=== PATIENT | female | born 1960 | race African-American/Black ===

== ENCOUNTER 2016-12-20 17:57 | Emergency (ER) | payer MEDICAID ==
[~2016-12-20] VITALS: Ht 157.5 cm; Wt 61.2 kg
[~2016-12-20 17:57] MED LIST: AMOXICILLI200 MG/5 M PO; CHERATUSSIN AC118 ML PO; CYCLOBENZAPRINE10 MG ORAL; IBUPROFEN600 MG ORAL; LORATADINE10 M2 PO; NORCO 5-325 TA1 EACH ORAL; OMEPRAZOLE20 M2 ORAL; PREDNISONE20 MG ORAL
[2016-12-20] MEDS ORDERED: TESSALON PERLE100 MG ORAL (18:31)
[2016-12-20] MEDS ORDERED: IBUPROFEN600 MG ORAL (18:31)
[2016-12-20] MEDS ORDERED: AMOXICILLIN500 MG ORAL (18:31)
[2016-12-20 18:37] VITALS: BP 144/80
[2016-12-20 18:40] VITALS: BP 144/80
--- NOTE | 2016-12-20 18:53 | Emergency Room Report ---
History of Present Illness General Chief Complaint: Sore Throat Source: Patient Present Illness HPI The patient is a 56-year-old female presenting for 2 weeks of sore throat, cough , and subjective fevers. She admits to a sick contact who is her mother with similar symptoms. Pain is described as an 8/10 dull ache and does not radiate from the throat. Pain worse with swallowing. She had a tonsillectomy as a child due to recurrent infections. She denies other symptoms including N, V, SOB, rash, CLEMENT, dizziness Allergies: Coded Allergies: SULFA (SULFONAMIDE ANTIBIOTICS) (Unverified Allergy, Intermediate, 12/21/14) Patient History Past Medical History: see triage record Pertinent Family History: none Reviewed Nursing Documentation: PMH: Agreed, PSxH: Agreed Nursing Documentation-PMH Past Medical History: No Stated History Hx Gastrointestinal Problems: Yes - GERD Review of Systems All Other Systems: negative except mentioned in HPI Physical Exam Vital Signs Date Time Temp Pulse Resp B/P Pulse Ox O2 Delivery O2 Flow Rate FiO2 12/20/16 18:18 97.9 84 16 144/80 98 Room Air Sp02 EP Interpretation: reviewed, normal General Appearance: no apparent distress, alert, GCS 15, non-toxic Head: normocephalic, atraumatic Eyes: bilateral eye PERRL, bilateral eye normal inspection ENT: hearing grossly normal, no angioedema, normal voice, uvula midline, other - tonsillectomy Neck: full range of motion, supple/symm/no masses Respiratory: chest non-tender, lungs clear, normal breath sounds, no wheezing, speaking full sentences Cardiovascular #1: regular rate, rhythm, no edema Neurologic: alert, oriented x3, responsive, motor strength/tone normal, sensory intact, speech normal Psychiatric: judgement/insight normal, memory normal, mood/affect normal, no suicidal/homicidal ideation Skin: normal color, no rash, warm/dry, well hydrated Lymphatic: adenopathy Medical Decision Making PA Attestation Dr. Lai is my supervising physician. Patient management was discussed with my supervising physician Diagnostic Impression: Primary Impression: Pharyngitis, acute Qualified Codes: J02.9 - Acute pharyngitis, unspecified ER Course The patient is a 56-year-old female presenting for 2 weeks of sore throat, cough , and subjective fevers Differential diagnosis include but not limited to pharyngitis, sinusitis, AOM, bronchitis, PNA Physical exam: Vitals within normal limits. Afebrile. No apparent distress HEENT exam: No tonsils. Oropharynx is erythematous. Uvula midline. Moist mucous membranes. There is bilateral cervical lymphadenopathy. Lungs are clear to auscultation bilaterally Skin is warm and dry. No rash The patient will be discharged home with a prescription for amoxicillin, motrin , and Tessalon and is given ER precautions. Patient will followup with primary care Last Vital Signs Date Time Temp Pulse Resp B/P Pulse Ox O2 Delivery O2 Flow Rate FiO2 12/20/16 18:40 97.9 78 16 144/80 98 Room Air Status: improved Disposition: HOME, SELF-CARE Condition: Improved Scripts Amoxicillin* (AMOXIL*) 500 Mg Capsule 500 MG ORAL Q12HR, #20 CAP Prov: SHARRI SEVILLA P.A. 12/20/16 Benzonatate* (TESSALON PERLE*) 100 Mg Capsule 100 MG ORAL THREE TIMES A DAY, #15 PERLE Prov: SHARRI SEVILLA P.A. 12/20/16 Ibuprofen* (MOTRIN*) 600 Mg Tablet 600 MG ORAL Q8H Y for For Pain, #30 TAB 0 Refills Prov: SHARRI SEVILLA P.A. 12/20/16 Patient Instructions: Pharyngitis, Sore Throat Additional Instructions: I discussed my findings with the patient. All questions and concerns have been answered. Treatment and medication compliance have been addressed. I advised the patient that they need to follow up with PMD in 3-5 days. Return to ED if pain remains or worsens, cough worsens or remains, you notice blood in your sputum, you notice wheezing, you experience a fever, or if needed for any reason. Patient verbalized understanding of discharge instructions. SHARRI SEVILLA Dec 20, 2016 18:53
== END 2016-12-20 18:35 | disposition home or self-care (01) ==
LOC: EMR 18:20
DX: J20.9 Acute bronchitis, unspecified (principal); Z88.2 Allergy status to sulfonamides; K21.9 Gastro-esophageal reflux disease without esophagitis
CPT/HCPCS: 82962; 99284

== ENCOUNTER 2017-05-01 18:08 | Emergency (ER) | payer MEDICAID ==
[~2017-05-01] VITALS: Ht 177.8 cm; Wt 61.2 kg
[~2017-05-01 18:08] MED LIST changes: +AMOXICILLIN500 MG ORAL; +TESSALON PERLE100 MG ORAL
[2017-05-01 19:15] VITALS: BP 123/78
[2017-05-01] MEDS ORDERED: Ketorolac 60mg Inj IM ONE (19:30)
[2017-05-01] MEDS ORDERED: TYLENOL EXTRA500 MG ORAL (19:56)
[2017-05-01] MEDS ORDERED: ROBAXIN-750750 MG PO (19:56)
[2017-05-01] MEDS ORDERED: SOMA350 MG PO (20:15)
[2017-05-01 20:30] VITALS: BP 129/81
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
--- NOTE | 2017-05-02 12:38 | Diagnostic Imaging Report ---
Indication: Neck Pain Findings: 3 views of the cervical spine were obtained. There is narrowing of the C5-6 disc with mild endplate spurring. There is straightening of cervical spine. No fracture or soft tissue swelling identified. Impression: Degenerative disease of C5-6
== END 2017-05-01 20:32 | disposition home or self-care (01) ==
LOC: EMR 18:41
DX: M54.9 Dorsalgia, unspecified (principal); S16.1XXA Strain of muscle, fascia and tendon at neck level, initial encounter; V43.52XA Car driver injured in collision with other type car in traffic accident, initial encounter; Y92.410 Unspecified street and highway as the place of occurrence of the external cause; M54.6 Pain in thoracic spine; Z88.2 Allergy status to sulfonamides
CPT/HCPCS: 72040; 96372; 99284

== ENCOUNTER 2017-12-05 12:32 | Emergency (ER) | payer MEDICAID ==
[~2017-12-05] VITALS: Ht 157.5 cm; Wt 61.2 kg
[~2017-12-05 12:32] MED LIST changes: +ROBAXIN-750750 MG PO; +SOMA350 MG PO; +TYLENOL EXTRA500 MG ORAL
[2017-12-05 12:46] VITALS: BP 132/80
--- NOTE | 2017-12-05 12:53 | Emergency Room Report ---
History of Present Illness General Chief Complaint: Upper Respiratory Illness Present Illness HPI 57-year-old female presents to the emergency department complaining of nonproductive persistent cough 3 days with associated 10 out of 10 in severity sore throat. Patient denies sputum production, wheezing, or shortness of breath. reports throat pain exacerbated with eating/swallowing. pt. reports fevers since yesterday and has been taking tylenol regularly. 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 Denies ear pain, high fevers, lethargy, neck pain/stiffness, irritability , photophobia dehydration, N/V/D. Denies Cp, Palpitations, LOC, AMS, seizures, paresthesias, or changes in Hearing or vision, no Sudden severe CLEMENT. Denies hx of smoking, asthma or COPD. Allergies: Coded Allergies: SULFA (SULFONAMIDE ANTIBIOTICS) (Unverified Allergy, Intermediate, 12/21/14) Patient History Past Medical History: see triage record Past Surgical History: none Pertinent Family History: none Now: No Immunizations: UTD Reviewed Nursing Documentation: PMH: Agreed; PSxH: Agreed Nursing Documentation-PMH Hx Gastrointestinal Problems: Yes - GERD Review of Systems All Other Systems: negative except mentioned in HPI Physical Exam Vital Signs Date Time Temp Pulse Resp B/P (MAP) Pulse Ox O2 Delivery O2 Flow Rate FiO2 12/05/17 12:36 97.8 83 20 132/80 99 Room Air 97.9 Sp02 EP Interpretation: reviewed, normal General Appearance: no apparent distress, alert, GCS 15, non-toxic Head: normocephalic, atraumatic Eyes: bilateral eye normal inspection, bilateral eye PERRL ENT: hearing grossly normal, normal voice, pharyngeal erythema, tonsillar exudate Neck: full range of motion Respiratory: chest non-tender, lungs clear, normal breath sounds, no rhonchi, no respiratory distress, no wheezing, speaking full sentences Cardiovascular #1: regular rate, rhythm, no edema, normal capillary refill Musculoskeletal: back normal, gait/station normal, normal range of motion, non- tender Neurologic: alert, oriented x3, responsive, motor strength/tone normal, sensory intact, speech normal, grossly normal Psychiatric: judgement/insight normal Skin: normal color, no rash, warm/dry, well hydrated Lymphatic: no adenopathy Medical Decision Making PA Attestation Dr. Banegas is my supervising Physician whom patient management has been discussed with. Diagnostic Impression: Primary Impression: Pharyngitis, acute Qualified Codes: J02.0 - Streptococcal pharyngitis ER Course 57-year-old female presents to the emergency department complaining of nonproductive persistent cough 3 days with associated 10 out of 10 in severity sore throat. Patient denies sputum production, wheezing, or shortness of breath. reports throat pain exacerbated with eating/swallowing. pt. reports fevers since yesterday and has been taking tylenol regularly. 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 Denies ear pain, high fevers, lethargy, neck pain/stiffness, irritability , photophobia dehydration, N/V/D. Denies Cp, Palpitations, LOC, AMS, seizures, paresthesias, or changes in Hearing or vision, no Sudden severe CLEMENT. Denies hx of smoking, asthma or COPD. Ddx considered but are not limited to: pharyngitis, strep, COAT PRESSER, ludwigs angina, URI Vital signs: are WNL, pt. is afebrile H&PE are most consistent with: pharyngitis presumed strep. ORDERS: None required at this time as the diagnosis is clinical ED INTERVENTIONS: none required at this time. DISCHARGE: At this time pt. is stable for d/c to home. Will provide printed patient care instructions, and any necessary prescriptions. Care plan and follow up instructions have been discussed with the patient prior to discharge. Last Vital Signs Date Time Temp Pulse Resp B/P (MAP) Pulse Ox O2 Delivery O2 Flow Rate FiO2 12/05/17 12:36 97.8 83 20 132/80 99 Room Air 97.9 Disposition: HOME, SELF-CARE Condition: Stable Scripts Loratadine/Pseudoephedrine (CLARITIN-D 12 HOUR TABLET) 1 Each Tab.er.12h 1 TAB ORAL EVERY 12 HOURS for 7 Days, #14 TAB Prov: Sweta Youngblood P.A. 12/05/17 Acetaminophen* (TYLENOL EXTRA STRENGTH*) 500 Mg Tablet 500 MG ORAL Q8H, #20 TAB 0 Refills Prov: Sweta Youngblood P.A. 12/05/17 Lidocaine HCl 2% Viscous (Lidocaine HCl 2% Viscous) 100 Ml Solution 15 ML ORAL QID, #120 ML Prov: Sweta Youngblood P.A. 12/05/17 Amoxicillin* (AMOXIL*) 500 Mg Capsule 500 MG ORAL BID for 7 Days, #14 CAP Prov: Sweta Youngblood 12/05/17 Patient Instructions: Pharyngitis Additional Instructions: Take medications as directed. Follow up with a Primary Care Provider in 3-5 days, even if your symptoms have resolved. --Please review list of primary care clinics, if you do not already have a primary care provider Return sooner to ED if new symptoms occur, or current symptoms become worse. Do not drink alcohol, drive, or operate heavy machinery while taking Cough Syrup as this may cause drowsiness. - Please note that this Emergency Department Report was dictated using [employer] validation specialist technology software, occasionally this can lead to erroneous entry secondary to interpretation by the dictation equipment. Sweta Youngblood December 05, 2017 12:53
[2017-12-05] MEDS ORDERED: AMOXICILLIN500 MG ORAL (13:04)
[2017-12-05] MEDS ORDERED: TYLENOL EXTRA500 MG ORAL (13:04)
[2017-12-05] MEDS ORDERED: CLARITIN-D 121 EAC1 ORAL (13:04)
[2017-12-05] MEDS ORDERED: LIDOCAINE VISC100 ML ORAL (13:04)
[2017-12-05 13:15] VITALS: BP 132/80
== END 2017-12-05 13:31 | disposition home or self-care (01) ==
LOC: EMR 12:52
DX: J02.9 Acute pharyngitis, unspecified (principal); K21.9 Gastro-esophageal reflux disease without esophagitis; Z88.2 Allergy status to sulfonamides
CPT/HCPCS: 99284

== ENCOUNTER 2018-10-23 19:52 | Emergency (ER) | payer MEDICAID ==
[~2018-10-23] VITALS: Ht 157.5 cm; Wt 61.2 kg
[~2018-10-23 19:52] MED LIST changes: +CLARITIN-D 121 EAC1 ORAL; +LIDOCAINE VISC100 ML ORAL
[2018-10-23] MEDS ORDERED: DiphenhydrAMINE 50mg/ml Inj IM ONE (21:15)
[2018-10-23 21:40] VITALS: BP 151/78
--- NOTE | 2018-10-23 21:40 | NUR ---
ED Nurse Note: pt walked in c/o rash started today around anterior chest and vanessa arms, reports itching. noted rash around anterior chest and vanessa arms, redness noted, no sx infection noted.
[2018-10-23] MEDS ORDERED: BENADRYL25 MG ORAL (21:45)
[2018-10-23] MEDS ORDERED: PREDNISONE20 MG ORAL (21:45)
--- NOTE | 2018-10-23 21:45 | Emergency Room Report ---
History of Present Illness General Chief Complaint: Skin Rash/Abscess Source: Patient Present Illness [facility] This is a 57-year-old female with no significant past medical history. She presents with chief complaint of itching and rash. Onset today. She was going to a graduation of her son at [employer]. She was fine this morning and on the drive back she started itching. There is rash on her forehead and arms. Also on her torso. Itching. Use rubbing alcohol not helping. Did not see any obvious bedbugs. Did use new soap from her sister. No new hair product. No fever or chills. Worse with scratching. Allergies: Coded Allergies: SULFA (SULFONAMIDE ANTIBIOTICS) (Unverified Allergy, Intermediate, 10/23/18) Patient History Past Medical History: see triage record, old chart reviewed Past Surgical History: none Pertinent Family History: none Social History: Denies: smoking Now: No Immunizations: other Reviewed Nursing Documentation: PMH: Agreed; PSxH: Agreed Nursing Documentation-PMH Hx Gastrointestinal Problems: Yes - GERD Review of Systems Eye: Denies: eye pain, blurred vision ENT: Denies: ear pain, nose congestion, throat swelling Respiratory: Denies: cough, shortness of breath Cardiovascular: Denies: chest pain, palpitations Gastrointestinal: Denies: abdominal pain, diarrhea, nausea, vomiting Musculoskeletal: Denies: back pain, joint pain Skin: Reports: rash Neurological: Denies: headache, numbness Endocrine: Denies: increased thirst, increased urine Hematologic/Lymphatic: Denies: easy bruising All Other Systems: negative except mentioned in HPI Physical Exam Vital Signs Date Time Temp Pulse Resp B/P (MAP) Pulse Ox O2 Delivery O2 Flow Rate FiO2 10/23/18 20:45 98.2 90 16 151/78 98 Room Air vitals high blood pressure Sp02 EP Interpretation: reviewed, normal General Appearance: well appearing, no apparent distress, alert Head: normocephalic, atraumatic Eyes: bilateral eye PERRL, bilateral eye EOMI ENT: hearing grossly normal, normal pharynx Neck: full range of motion, supple, no meningismus Respiratory: chest non-tender, lungs clear, normal breath sounds Cardiovascular #1: regular rate, rhythm, no murmur Gastrointestinal: normal bowel sounds, non tender, no mass, no organomegaly, no bruit, non-distended Musculoskeletal: back normal, gait/station normal, normal range of motion Psychiatric: mood/affect normal Skin: warm/dry, other - Scattered urticaria and welts Medical Decision Making Diagnostic Impression: Primary Impression: Allergic reaction Qualified Codes: T78.40XA - Allergy, unspecified, initial encounter ER Course Patient with allergic reaction. Unknown etiology. Could be new soap product. No evidence of abscess or infectious cause. We'll discharge home. Last Vital Signs Date Time Temp Pulse Resp B/P (MAP) Pulse Ox O2 Delivery O2 Flow Rate FiO2 10/23/18 20:45 98.2 90 16 151/78 98 Room Air Status: improved Disposition: HOME, SELF-CARE Condition: Stable Scripts Prednisone* (PREDNISONE*) 20 Mg Tablet 40 MG ORAL DAILY, #8 TAB Prov: Fernando Costello MD 10/23/18 Diphenhydramine Hcl* (BENADRYL*) 25 Mg Capsule 50 MG ORAL Q6H PRN for Itching, #30 CAP Prov: Fernando Costello MD 10/23/18 Referrals: NOT CHOSEN [facility]/,REFERRING (PCP) Additional Instructions: Follow-up with your doctor in 3-5 days if not better. Return if worse. Fernando Costello MD Oct 23, 2018 21:45
[2018-10-23 21:51] VITALS: BP 151/78
--- NOTE | 2018-10-23 21:51 | NUR ---
ED Nurse Note: pt cleared to be d/c per ERMD, pt discharge and aftercare instruction provided w/ prescription, pt education done via discussion and handout, pt verbalized understanding and agrees with plan, left w/ all belongings, accompanied by son.
== END 2018-10-23 21:51 | disposition home or self-care (01) ==
LOC: EMR 21:04
DX: T78.40XA Allergy, unspecified, initial encounter (principal); X58.XXXA Exposure to other specified factors, initial encounter; L50.0 Allergic urticaria; K21.9 Gastro-esophageal reflux disease without esophagitis; Z88.2 Allergy status to sulfonamides
CPT/HCPCS: 96372; 99283; J1200; J7512

== ENCOUNTER 2018-10-28 19:34 | Emergency (ER) | payer MEDICAID ==
[~2018-10-28] VITALS: Ht 157.5 cm; Wt 61.2 kg
[~2018-10-28 19:34] MED LIST changes: +BENADRYL25 MG ORAL
[2018-10-28 19:56] VITALS: BP 150/82
--- NOTE | 2018-10-28 19:56 | NUR ---
ED Nurse Note: Pt arrived ED from home, c/o general body rashes with unknown reason. Pt states that she was traveled out of Town recentely. Pt is A/O X 4. Vital signs stable at this time, waitng for orders.
[2018-10-28] MEDS ORDERED: KENALOG 0.025%15 GM APPLIC (20:20)
[2018-10-28] MEDS ORDERED: ATARAX25 MG ORAL (20:20)
[2018-10-28 20:27] VITALS: BP 148/80
--- NOTE | 2018-10-28 20:27 | NUR ---
ER DISCHARGE NOTE: Patient is cleared to be discharged per Dr. Valdes. Meds given as ordered. Pt is A/O x 4 on room air with stable vital signs. Pt was given D/C and prescription instructions and was able to verbalize understanding. Pt's ID band removed. Pt is able to ambulate with steady gait and took all belongings.
--- NOTE | 2018-10-29 04:25 | NUR ---
Note jose mone in EDM - 10/29/18 at 0428 by RENEE ER DISCHARGE NOTE: Patient is cleared to be discharged per Dr. Peters. Meds given as ordered. Pt is A/O x 4 on room air with stable vital signs. Pt was given D/C and prescription instructions and was able to verbalize understanding. Pt's ID band removed. Pt is able to ambulate with steady gait and took all belongings.
--- NOTE | 2018-10-30 13:53 | Emergency Room Report ---
History of Present Illness General Chief Complaint: Skin Rash/Abscess Source: Patient Present Illness HPI Patient is a 57-year-old female who presented after increased skin rash. Patient reports of increased bites to the left lower extremity as well as to her shoulder and neck area. This had been present for several days. Patient had reportedly had been seen for these bite several days ago and was given prescription for steroids as well as Benadryl without any improvement. Patient was noted to have increased itching and discomfort. She stated that she had stayed in a hotel room near an [employer] [place] and subsequently began having the rash. Allergies: Coded Allergies: SULFA (SULFONAMIDE ANTIBIOTICS) (Unverified Allergy, Intermediate, 10/23/18) Patient History Past Medical History: see triage record Reviewed Nursing Documentation: PMH: Agreed; PSxH: Agreed Nursing Documentation-PMH Hx Gastrointestinal Problems: Yes - GERD Review of Systems All Other Systems: negative except mentioned in HPI Physical Exam Vital Signs Date Time Temp Pulse Resp B/P (MAP) Pulse Ox O2 Delivery O2 Flow Rate FiO2 10/28/18 19:50 98.1 85 16 151/80 97 Room Air General Appearance: well appearing, no apparent distress, alert, GCS 15 Head: normocephalic, atraumatic ENT: hearing grossly normal, normal voice Neck: full range of motion, supple Respiratory: no respiratory distress, speaking full sentences Cardiovascular #1: normal inspection Musculoskeletal: no calf tenderness Neurologic: normal inspection, alert, normal gait Psychiatric: mood/affect normal Skin: other - multiple papular lesions with surrounding urticaria Medical Decision Making Diagnostic Impression: Primary Impression: Insect bites ER Course Patient presented for skin rash. Differential diagnosis includes is not limited to insect bite, scabies, molluscum contagiosum, erythema multiforme, vasculitis. Patient has a benign exam and does not appear to require any further imaging or laboratory testing at this time. Patient appears to have what looks like a skin rash related to mosquito bites however there is some urticaria. Patient is given prescriptions for medications for symptomatic relief. Patient is advised to have skin rechecked with her primary care physician in the next few days. She is advised to return if she had any worsening of condition or loss of skin. Last Vital Signs Date Time Temp Pulse Resp B/P (MAP) Pulse Ox O2 Delivery O2 Flow Rate FiO2 10/28/18 20:27 98.1 81 16 148/80 97 Room Air Status: improved Disposition: HOME, SELF-CARE Condition: Improved Scripts Triamcinolone Acet (Triamcinolone Acetonide) 15 Gm Cream..g. 1 GM APPLIC DAILY, #15 GM Prov: Niels Valdes MD 10/28/18 Hydroxyzine HCl (Hydroxyzine HCl) 25 Mg Tablet 25 MG ORAL FOUR TIMES A DAY, #30 TAB Prov: Niels Valdes MD 10/28/18 Referrals: Tejinder LEONARDO,REFERRING (PCP) Patient Instructions: Niels John MD Oct 30, 2018 13:53
== END 2018-10-28 20:27 | disposition home or self-care (01) ==
LOC: EMR 20:10
DX: R21 Rash and other nonspecific skin eruption (principal); W57.XXXA Bitten or stung by nonvenomous insect and other nonvenomous arthropods, initial encounter; Y92.9 Unspecified place or not applicable; Z88.2 Allergy status to sulfonamides; K21.9 Gastro-esophageal reflux disease without esophagitis
CPT/HCPCS: 99282

== ENCOUNTER 2019-07-15 13:31 | Emergency (ER) | payer MEDICAID ==
[~2019-07-15] VITALS: Ht 157.5 cm; Wt 62.6 kg
[~2019-07-15 13:31] MED LIST changes: +ATARAX25 MG ORAL; +KENALOG 0.025%15 GM APPLIC
[2019-07-15 13:45] VITALS: BP 142/82
--- NOTE | 2019-07-15 13:50 | NUR ---
ED Nurse Note: Pt ambulated to ED with c/o facila rash x 3 days. Per pt it may be possible food allergy from her intake. Pt is calm and cooperative. AOx3. Placed on bed.
--- NOTE | 2019-07-15 13:55 | NUR ---
ED Nurse Note: PA on bedside.
[2019-07-15 14:41] VITALS: BP 138/80
--- NOTE | 2019-07-15 14:41 | NUR ---
ER DISCHARGE NOTE: Pt is cleared to be discharged per ERMD, pt is aox4, on room air, with stable vital signs. pt was given dc and prescription instructions, pt was able to verbalize understanding, pt id band removed . pt is able to ambulate with steady gait.
[2019-07-15] MEDS ORDERED: PREDNISONE20 MG ORAL (14:46)
[2019-07-15] MEDS ORDERED: EPIPEN 2-P0.3 MG/0.3 IM (14:46)
[2019-07-15] MEDS ORDERED: BENADRYL25 MG ORAL (14:46)
--- NOTE | 2019-07-15 14:46 | Emergency Room Report ---
History of Present Illness General Chief Complaint: Skin Rash/Abscess Source: Patient Present Illness HPI 58-year-old female, presents with 3 days of facial rash she states she had little bumps, that were itchy and appeared on her face after eating a cookie, she is not sure if she was allergic to the nuts, she has been taking Benadryl which has been helping, her rash is significantly improved denies any chest pain shortness of breath no nausea no vomiting no abdominal pain severity is mild, patient presents for evaluation Allergies: Coded Allergies: SULFA (SULFONAMIDE ANTIBIOTICS) (Unverified Allergy, Intermediate, 10/23/18) Patient History Past Medical History: see triage record Reviewed Nursing Documentation: PMH: Agreed; PSxH: Agreed Nursing Documentation-PMH Hx Gastrointestinal Problems: Yes - GERD Review of Systems All Other Systems: negative except mentioned in HPI Physical Exam Vital Signs Date Time Temp Pulse Resp B/P (MAP) Pulse Ox O2 Delivery O2 Flow Rate FiO2 07/15/19 13:40 97.9 85 20 139/69 (92) 96 Room Air Sp02 EP Interpretation: reviewed, normal General Appearance: well appearing, no apparent distress, alert Head: normocephalic, atraumatic Eyes: bilateral eye PERRL, bilateral eye EOMI ENT: uvula midline, moist mucus membranes Neck: supple, thyroid normal, supple/symm/no masses Respiratory: lungs clear, no respiratory distress, no retraction, no accessory muscle use Cardiovascular #1: normal peripheral pulses, regular rate, rhythm, no edema, no gallop, no murmur Gastrointestinal: non tender, soft, no guarding, no rebound Musculoskeletal: normal inspection Neurologic: alert, oriented x3 Psychiatric: mood/affect normal Skin: no rash, warm/dry, other Medical Decision Making Diagnostic Impression: Primary Impression: Allergic reaction Qualified Codes: T78.40XA - Allergy, unspecified, initial encounter ER Course 58-year-old female presents with most likely allergic reaction, no evidence of anaphylaxis, no respiratory distress, no dyspnea Will provide patient with Benadryl, steroid burst, will provide EpiPen just in case Disposition home with return precautions Last Vital Signs Date Time Temp Pulse Resp B/P (MAP) Pulse Ox O2 Delivery O2 Flow Rate FiO2 07/15/19 13:40 97.9 85 20 139/69 (92) 96 Room Air Disposition: HOME, SELF-CARE Condition: Stable Scripts Epinephrine (Epipen 2-Byron) 0.3 Mg/0.3 Ml Auto.injct 0.3 MG IM ONCE PRN for anaphylaxis, #1 EA Prov: Diego Jara MD 07/15/19 Prednisone* (PREDNISONE*) 20 Mg Tablet 20 MG ORAL DAILY, #5 TAB Prov: Diego Jara MD 07/15/19 Diphenhydramine Hcl* (BENADRYL*) 25 Mg Capsule 25 MG ORAL Q6H PRN for Itching, #30 CAP Prov: Diego Jara MD 07/15/19 Referrals: [facility] Patient Instructions: Food Allergy, [id number], Hives Additional Instructions: The patient was provided with discharge instructions, notified to follow-up with a primary care doctor and or specialist in the next 24-48 hours, and to return to the ED if they have worsening of their symptoms. Please note that this report is being documented using [employer] technology. This can lead to erroneous entry secondary to incorrect interpretation by the dictating instrument. Diego Jara MD Jul 15, 2019 14:46
== END 2019-07-15 14:45 | disposition home or self-care (01) ==
LOC: EMR 14:42
DX: T78.40XA Allergy, unspecified, initial encounter (principal); K21.9 Gastro-esophageal reflux disease without esophagitis; Z88.2 Allergy status to sulfonamides
CPT/HCPCS: 99282

== ENCOUNTER → 2019-08-22 | Emergency (ER) | payer MEDICAID ==
[~2019-08-22] VITALS: Ht 157.5 cm; Wt 61.2 kg
[~2019-08-22] MED LIST changes: +EPIPEN 2-P0.3 MG/0.3 IM; +IBUPROFEN400 MG ORAL; +LIDODERM700 M1 TOPIC; +ROBAXIN-500MG ORAL
--- NOTE | 2019-08-22 16:42 | NUR ---
ED Nurse Note: pt ambulated to ED d/t sore troat with 10/10 pain scale x 3 days. Pt is AOx4, VSS, on RA, afebrile on triage. Placed on bed.
[2019-08-22 16:49] VITALS: BP 158/84
--- NOTE | 2019-08-22 16:54 | Emergency Room Report ---
History of Present Illness General Chief Complaint: Sore Throat Source: Patient, Medical Record Present Illness HPI 58-year-old female with no significant past medical history here complaining of 4 days but cannot tell sore throat. Denies fever and chills, cough and congestion. Denies recent travel denies abdominal pain, nausea vomiting. Patient reports that she started feeling very dry inside her mouth after applying hydrogen peroxide multiple times in the past few days. Patient said that she googled and that the hydrogen peroxide will help with her throat pain. Denies history of diabetes. Denies polyuria. Has not taken any medication for symptom relief. Appears to be stable with stable vital signs. Allergies: Coded Allergies: SULFA (SULFONAMIDE ANTIBIOTICS) (Unverified Allergy, Intermediate, 10/23/18) Patient History Past Medical History: see triage record Past Surgical History: none Pertinent Family History: none Last Menstrual Period: N/A Now: No Immunizations: UTD Reviewed Nursing Documentation: PMH: Agreed; PSxH: Agreed Nursing Documentation-PMH Hx Gastrointestinal Problems: Yes - GERD Review of Systems All Other Systems: negative except mentioned in HPI Physical Exam Vital Signs Date Time Temp Pulse Resp B/P (MAP) Pulse Ox O2 Delivery O2 Flow Rate FiO2 08/22/19 16:38 98.1 85 18 158/84 (108) 97 Room Air Sp02 EP Interpretation: reviewed, normal General Appearance: no apparent distress, alert, GCS 15, non-toxic Head: normocephalic, atraumatic Eyes: bilateral eye normal inspection, bilateral eye PERRL ENT: hearing grossly normal, no angioedema, normal voice, tonsillar swelling, pharyngeal erythema, tonsillar exudate Neck: full range of motion, supple, no meningismus, other - Anterior cervical lymphadenopathy Respiratory: chest non-tender, lungs clear, normal breath sounds, no rhonchi, no respiratory distress, no retraction, no wheezing, speaking full sentences Cardiovascular #1: regular rate, rhythm, no edema, no murmur Gastrointestinal: normal bowel sounds, non tender, soft, non-distended, no guarding, no rebound Rectal: deferred Genitourinary: no CVA tenderness Musculoskeletal: back normal Neurologic: alert, motor strength/tone normal, oriented x3, sensory intact, responsive, speech normal Psychiatric: judgement/insight normal, memory normal, mood/affect normal, no suicidal/homicidal ideation Skin: no rash, normal color Lymphatic: adenopathy - Anterior cervical lymphadenopathy Medical Decision Making PA Attestation All my diagnosis and treatment plans were reviewed ad discussed with my supervising physician Dr. Peters Diagnostic Impression: Primary Impression: Strep pharyngitis ER Course 58-year-old female with no significant past medical history here complaining of 4 days but cannot tell sore throat. Denies fever and chills, cough and congestion. Denies recent travel denies abdominal pain, nausea vomiting. Patient reports that she started feeling very dry inside her mouth after applying hydrogen peroxide multiple times in the past few days. Patient said that she googled and that the hydrogen peroxide will help with her throat pain. Denies history of diabetes. Denies polyuria. Has not taken any medication for symptom relief. Appears to be stable with stable vital signs. Ddx considered but are not limited to: strep pharyngitis, URI, tonsillitis, peritonsillar abscess, influenza Vital signs: are WNL, pt. is afebrile H&PE are most consistent with: Strep pharyngitis ORDERS: Amoxicillin, lidocaine spray, Motrin ED INTERVENTIONS: None required at this time. DISCHARGE: At this time pt. is stable for d/c to home. Will provide printed patient care instructions, and any necessary prescriptions. Care plan and follow up instructions have been discussed with the patient prior to discharge. Dry mouth is secondary to having an infection as well as application of hydrogen peroxide multiple times. Follow-up with primary care provider, if worsening symptoms return to the emergency room Last Vital Signs Date Time Temp Pulse Resp B/P (MAP) Pulse Ox O2 Delivery O2 Flow Rate FiO2 08/22/19 16:49 98.1 62 18 158/84 97 Room Air Disposition: HOME, SELF-CARE Condition: Stable Scripts Ibuprofen* (MOTRIN*) 400 Mg Tablet 400 MG ORAL Q8H, #30 TAB 0 Refills Prov: ClydeelimoghavamiNahal PA 08/22/19 Lidocaine HCl 2% Viscous (Lidocaine HCl 2% Viscous) 100 Ml Solution 15 ML ORAL QID, #100 ML Prov: FannymoghanahomiNahal PA 08/22/19 Amoxicillin* (AMOXIL*) 500 Mg Capsule 500 MG ORAL BID for 10 Days, #20 CAP Prov: SahelimoghavamiNahal PA 08/22/19 Patient Instructions: Strep Throat Additional Instructions: Take medication as directed follow-up with primary care provider, increase oral hydration, avoid eating spicy and greasy food. Avoid eating salty food. Avoid using hydrogen peroxide inside your mouth. Worsening symptoms return to the emergency room Jose Francisco Hale Aug 22, 2019 16:54
[2019-08-22 17:01] VITALS: BP 148/82
--- NOTE | 2019-08-22 17:01 | NUR ---
ER DISCHARGE NOTE: Pt is cleared to be discharged per ERMD, pt is AOx4, VSS, on RA. pt was given dc and prescription instructions, pt was able to verbalize understanding, pt id band removed. pt is able to ambulate with steady gait. pt took all belongings.
== END | disposition home or self-care (01) ==
LOC: EMR 17:15
DX: J02.0 Streptococcal pharyngitis (principal); Z88.2 Allergy status to sulfonamides
CPT/HCPCS: 99282

== ENCOUNTER 2019-10-06 16:38 | Emergency (ER) | payer MEDICAID ==
[~2019-10-06] VITALS: Ht 157.5 cm; Wt 59.0 kg
[~2019-10-06 16:38] MED LIST changes: -LIDODERM700 M1 TOPIC; -ROBAXIN-500MG ORAL
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
[2019-10-06 18:13] VITALS: BP 115/76
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
[2019-10-06] MEDS ORDERED: ROBAXIN-500MG ORAL (18:36)
[2019-10-06] MEDS ORDERED: IBUPROFEN600 MG ORAL (18:36)
[2019-10-06] MEDS ORDERED: LIDODERM700 M1 TOPIC (18:36)
[2019-10-06 18:46] VITALS: BP 117/78
--- NOTE | 2019-10-06 18:46 | NUR ---
ER DISCHARGE NOTE: Patient is cleared to be discharged per ERMD, pt is aox4, on room air, with stable vital signs. pt was given dc and prescription instructions, pt was able to verbalize understanding, pt id band removed. pt is able to ambulate with steady gait. pt took all belongings.
== END 2019-10-06 18:46 | disposition home or self-care (01) ==
LOC: EMR 17:35
DX: S16.1XXA Strain of muscle, fascia and tendon at neck level, initial encounter (principal); S39.012A Strain of muscle, fascia and tendon of lower back, initial encounter; V43.52XA Car driver injured in collision with other type car in traffic accident, initial encounter; Y92.410 Unspecified street and highway as the place of occurrence of the external cause; Y99.8 Other external cause status; Z88.2 Allergy status to sulfonamides; K21.9 Gastro-esophageal reflux disease without esophagitis
CPT/HCPCS: 99282

== ENCOUNTER 2020-04-25 15:19 | Emergency (ER) | payer MEDICAID ==
[~2020-04-25] VITALS: Ht 157.5 cm; Wt 61.2 kg
[~2020-04-25 15:19] MED LIST changes: +LIDODERM700 M1 TOPIC; +ROBAXIN-500MG ORAL
--- NOTE | 2020-04-25 15:28 | NUR ---
ED Nurse Note: Pt walked in from home c/o headache and sinus pain x 2 days. Respirations even and unlabored on room air. Vitals stable as documented. A+Ox4, speaking in complete sentences.
[2020-04-25 15:29] VITALS: BP 138/76
--- NOTE | 2020-04-25 15:46 | Emergency Room Report ---
History of Present Illness General Chief Complaint: Headache Source: Patient Present Illness HPI 59-year-old female with no known significant past medical history here complaining of sinus pressure and pain that started with sore throat and nasal congestion x3 days. Rates the pressure pain 10 out of 10 reports is worsened when she leans her head forward and now has radiating pain to posterior neck however denies any history of high blood pressure, dizziness and blurry vision. Denies any fall or injury, lifting heavy objects. Refuses to have any sort of scans or blood work done. Patient wants to be seen right away and be prescribed antibiotics. Denies abdominal pain, nausea vomiting diarrhea, loss of taste or smell. Denies tobacco smoke, drug use, alcohol intake Allergies: Coded Allergies: SULFA (SULFONAMIDE ANTIBIOTICS) (Unverified Allergy, Intermediate, 10/23/18) COVID-19 Screening Contact w/high risk pt: No Recent Travel to affected area: No Experienced COVID-19 symptoms?: No COVID-19 Testing performed [place]: No Patient History Past Medical History: see triage record Past Surgical History: none Pertinent Family History: none Last Menstrual Period: na Immunizations: UTD Reviewed Nursing Documentation: PMH: Agreed; PSxH: Agreed Nursing Documentation-PMH Past Medical History: No History, Except For Hx Gastrointestinal Problems: Yes - GERD Review of Systems All Other Systems: negative except mentioned in HPI Physical Exam Vital Signs Date Time Temp Pulse Resp B/P (MAP) Pulse Ox O2 Delivery O2 Flow Rate FiO2 04/25/20 15:22 98.1 83 18 134/71 (92) 97 Room Air Sp02 EP Interpretation: reviewed, normal General Appearance: no apparent distress, alert, GCS 15, non-toxic Head: normocephalic, atraumatic ENT: normal pharynx, no angioedema, TMs + canals normal, other - Frontal sinus tenderness palpation Neck: full range of motion, supple, thyroid normal, no meningismus, no bony tend, supple/symm/no masses Respiratory: chest non-tender, lungs clear, normal breath sounds, no rhonchi, no respiratory distress, no retraction, no accessory muscle use, no wheezing, speaking full sentences Cardiovascular #1: regular rate, rhythm, no edema, no murmur Cardiovascular #2: 2+ carotid (R), 2+ carotid (L), 2+ radial (R), 2+ radial (L) Gastrointestinal: non tender, soft Rectal: deferred Musculoskeletal: back normal Neurologic: alert, motor strength/tone normal, oriented x3, sensory intact, responsive, speech normal Psychiatric: judgement/insight normal, memory normal, mood/affect normal, no suicidal/homicidal ideation Skin: no rash Lymphatic: no adenopathy Medical Decision Making PA Attestation All my diagnosis and treatment plans were reviewed ad discussed with my supervising physician Dr. Connell Diagnostic Impression: Primary Impression: Sinusitis Additional Impression: Cervical strain ER Course 59-year-old female with no known significant past medical history here complaining of sinus pressure and pain that started with sore throat and nasal congestion x3 days. Rates the pressure pain 10 out of 10 reports is worsened when she leans her head forward and now has radiating pain to posterior neck however denies any history of high blood pressure, dizziness and blurry vision. Denies any fall or injury, lifting heavy objects. Refuses to have any sort of scans or blood work done. Patient wants to be seen right away and be prescribed antibiotics. Denies abdominal pain, nausea vomiting diarrhea, loss of taste or smell. Denies tobacco smoke, drug use, alcohol intake Ddx considered but are not limited to: Tension headache migraine headache, sinusitis, hypertension urgency, hypertension emergency Vital signs: are WNL, pt. is afebrile H&PE are most consistent with: Sinusitis, cervical strain ORDERS: Augmentin, prednisone, lidocaine cream ED INTERVENTIONS: None required at this time. DISCHARGE: At this time pt. is stable for d/c to home. Will provide printed patient care instructions, and any necessary prescriptions. Care plan and follow up instructions have been discussed with the patient prior to discharge. Take medication as directed, follow-up primary care provider, worsening symptoms return to the emergency room Last Vital Signs Date Time Temp Pulse Resp B/P (MAP) Pulse Ox O2 Delivery O2 Flow Rate FiO2 04/25/20 15:29 98.3 76 20 138/76 99 Room Air Disposition: HOME, SELF-CARE Condition: Stable Scripts Lidocaine (Lidocaine) 15 Gm Cream..g. 2 GM TP TID, #15 GM Prov: Jose Francisco Hale 04/25/20 Prednisone* (PREDNISONE*) 20 Mg Tablet 40 MG ORAL DAILY for 5 Days, #10 TAB Prov: Jose Francisco Hale 04/25/20 Amoxicillin/Potassium Clav 875-125* (AUGMENTIN 875-125 TABLET*) 1 Each Tablet 1 TAB ORAL TWICE A DAY for 10 Days, #20 TAB Prov: Jose Francisco Hale 04/25/20 Patient Instructions: Cervical Strain and Sprain With Rehab-SportsMed, Sinus Headache Additional Instructions: Take medication as directed, follow-up with your primary care provider, if worsening symptoms return to emergency room Jose Francisco Hale Apr 25, 2020 15:46
[2020-04-25] MEDS ORDERED: LIDOCAINE15 GM TP (15:48)
[2020-04-25] MEDS ORDERED: PREDNISONE20 MG ORAL (15:48)
[2020-04-25] MEDS ORDERED: AUGMENTIN 875-1 EAC1 ORAL (15:48)
[2020-04-25 15:55] VITALS: BP 132/71
--- NOTE | 2020-04-25 15:55 | NUR ---
ED Nurse Note: Pt cleared by health care Provider for discharge. DC instructions/prescription were given and explained to pt and verbalized understanding of teachings. All medical deviecs such as ID band removed. Pt is AAO x4, ambulatory and left with all personal belongings.
== END 2020-04-25 15:55 | disposition home or self-care (01) ==
LOC: EMR 15:45
DX: J32.9 Chronic sinusitis, unspecified (principal); S16.1XXA Strain of muscle, fascia and tendon at neck level, initial encounter; X58.XXXA Exposure to other specified factors, initial encounter; Y92.9 Unspecified place or not applicable; Z88.2 Allergy status to sulfonamides; K21.9 Gastro-esophageal reflux disease without esophagitis
CPT/HCPCS: 99282

== ENCOUNTER → 2020-04-28 | Emergency (ER) | payer MEDICAID ==
[~2020-04-28] VITALS: Ht 157.5 cm; Wt 61.2 kg
[~2020-04-28] MED LIST changes: +AUGMENTIN 875-1 EAC1 ORAL; +LIDOCAINE15 GM TP; +ONDANSETRON ODT4 MG BC
[2020-04-28 14:35] VITALS: BP 127/74
--- NOTE | 2020-04-28 14:35 | NUR ---
ED Nurse Note: Pt walked in to ED c/o sinus infection. Pt was seen here last tues for same sx. Pt c/o weakness, bloatedness (side effects) from the medication that was prescribed to her. Pt was asking for a different kind of antibiotic. AAOX4, verbally responsive. No SOB. on room air.
[2020-04-28 15:04] VITALS: BP 121/71
--- NOTE | 2020-04-28 15:04 | Emergency Room Report ---
History of Present Illness General Chief Complaint: General Complaint Source: Patient Present Illness HPI Disclaimer: Please note that this report is being documented using DRAGON technology. This can lead to erroneous entry secondary to incorrect interpretation by the dictating instrument. HPI: 59-year-old female recently seen in the emergency department for sinusitis presents requesting medication change. Patient states she has been taking Augmentin for sinusitis for the past 2 days. Notes epigastric cramping and discomfort, fatigue, difficulty swallowing the pills. She denies fever, chills, diarrhea, chest pain, palpitations, cough. She is requesting that Augmentin be switched to amoxicillin which she has tolerated in the past. Also requesting something to settle her stomach. Denies significant headaches, changes in vision, restriction ocular ocular motion. PMH: Reviewed PSH: Reviewed Allergies: Sulfa medications Social Hx: Reviewed Allergies: Coded Allergies: SULFA (SULFONAMIDE ANTIBIOTICS) (Unverified Allergy, Intermediate, 10/23/18) COVID-19 Screening Contact w/high risk pt: No Recent Travel to affected area: No Experienced COVID-19 symptoms?: No COVID-19 Testing performed REFUSE LABORER: No Patient History Now: No Nursing Documentation-PMH Hx Gastrointestinal Problems: Yes - GERD Review of Systems All Other Systems: negative except mentioned in HPI Physical Exam Vital Signs Date Time Temp Pulse Resp B/P (MAP) Pulse Ox O2 Delivery O2 Flow Rate FiO2 04/28/20 14:27 97.9 79 19 127/74 (91) 99 Room Air General: Awake and alert, no acute distress HEENT: NC/AT. Mild tenderness palpation over the frontal sinus. EOMI. sclera noninjected, no purulence, no restriction of ocular ocular motors and. No lid edema or proptosis. Resp: Normal work of breathing. Abdomen: Abdomen is soft, nondistended. Nontender Skin: Intact. No abrasions, laceration or rash over the exposed skin MSK: Normal tone and bulk. Moving all extremities. No obvious deformity. Neuro: Awake and alert. Mentating appropriately. Medical Decision Making Diagnostic Impression: Primary Impression: Medication side effect ER Course Is a 59-year-old female requesting medication change after experiencing epigastric discomfort which he attributes to the Augmentin she was prescribed for sinusitis 2 days ago. She did not take this morning's medications. She denies fever or chills, no other concerning symptoms at this time. She is overall well-appearing, nontoxic and in no distress at this time. I offered to perform labs should she be significantly dehydrated, have other metabolic abnormalities or other cause for her abdominal pain however the patient declined. She states that it is attributed to the medications and would like to change. She states she is no longer taking the prednisone as she does not like how it makes her feel. I did prescribe amoxicillin and told her discontinue the Augmentin. Also prescribe Zofran and Tylenol. Patient seems satisfied and will follow-up with her PMD. Instructed to return with new or worsening symptoms. Last Vital Signs Date Time Temp Pulse Resp B/P (MAP) Pulse Ox O2 Delivery O2 Flow Rate FiO2 04/28/20 14:35 97.9 79 19 127/74 99 Room Air Disposition: HOME, SELF-CARE Condition: Stable Scripts Acetaminophen* (TYLENOL EXTRA STRENGTH*) 500 Mg Tablet 500 MG ORAL Q8H PRN for Prn Headache/Temp > 101, #30 TAB 0 Refills Prov: Joey Novoa MD 04/28/20 Ondansetron Odt* (ZOFRAN ODT*) 4 Mg Tab.rapdis 4 MG BC EVERY 6 HOURS PRN for Nausea & Vomiting, #10 TAB 0 Refills Prov: Joey Novoa MD 04/28/20 Amoxicillin* (AMOXIL*) 500 Mg Capsule 500 MG ORAL BID for 7 Days, #14 CAP Prov: Joey Novoa MD 04/28/20 [facility] Patient Instructions: Sinusitis, Adult Additional Instructions: Please follow-up with your primary care doctor in the next 1 to 3 days to discuss this emergency department visit and for reevaluation. If you have any new or worsening symptoms please return to the emergency department for reevaluation. Please note that this report is being documented using Tail technology. This can lead to erroneous entry secondary to incorrect interpretation by the dictating instrument. Joey Novoa MD Apr 28, 2020 15:04
== END | disposition home or self-care (01) ==
LOC: EMR 14:49
DX: R10.13 Epigastric pain (principal); T36.1X5A Adverse effect of cephalosporins and other beta-lactam antibiotics, initial encounter; Y92.9 Unspecified place or not applicable; Z88.2 Allergy status to sulfonamides; K21.9 Gastro-esophageal reflux disease without esophagitis
CPT/HCPCS: 99282

== ENCOUNTER 2020-10-07 12:29 | Emergency (ER) | payer MEDICAID ==
[~2020-10-07] VITALS: Ht 177.8 cm; Wt 66.7 kg
--- NOTE | 2020-10-07 12:47 | NUR ---
Patient reporting to the ER c/o knee/joint pain and possible sinus infection. The pain has been on-going for 3 days- first occurence. Allergy: Sulfa-swelling No significant medical history. AAOX4
[2020-10-07] MEDS ORDERED: AMOXICILLIN500 MG ORAL (12:57)
[2020-10-07] MEDS ORDERED: ALLEGRA ALLERG180 M1 PO (12:57)
[2020-10-07] MEDS ORDERED: IBUPROFEN600 M1 ORAL (12:57)
--- NOTE | 2020-10-07 13:03 | Emergency Room Report ---
History of Present Illness General Chief Complaint: Pain Source: Patient Present Illness HPI Patient presents emergency department today complaining of 2 weeks of worsening sinus pain and sinus congestion. Subjective fevers and chills. Although no documented fever here. Thinks that she might have a sinus infection. In addition patient complains of finger pains and knee pain. Patient denies any trauma. Denies any swelling. Denies any calf tenderness. Symptoms noted to be mild to moderate. No other modifying factors. No other associated signs and symptoms. No other complaints were noted. Patient thinks that she might of strained her hand lifting weights. Allergies: Coded Allergies: SULFA (SULFONAMIDE ANTIBIOTICS) (Unverified Allergy, Intermediate, 10/23/18) COVID-19 Screening Contact w/high risk pt: No Recent Travel to affected area: No Experienced COVID-19 symptoms?: No COVID-19 Testing performed INSURANCE VERIFICATION CLERK: No COVID-19 Screening: Negative COVID-19 COVID-19 Testing Source: not tested Patient History Past Medical History: none Past Surgical History: none Pertinent Family History: none Social History: Denies: smoking, alcohol use, drug use Reviewed Nursing Documentation: PMH: Agreed; PSxH: Agreed Nursing Documentation-PMH Hx Gastrointestinal Problems: Yes - GERD Review of Systems All Other Systems: negative except mentioned in HPI Physical Exam Vital Signs Date Time Temp Pulse Resp B/P (MAP) Pulse Ox O2 Delivery O2 Flow Rate FiO2 10/07/20 12:39 130/76 (94) Sp02 EP Interpretation: reviewed, normal General Appearance: normal inspection, well appearing, no apparent distress, alert Head: atraumatic Eyes: bilateral eye normal inspection ENT: normal ENT inspection, hearing grossly normal, normal voice, other - Face tender to percussion bilateral Neck: normal inspection, full range of motion, supple, no bony tend Respiratory: normal inspection, lungs clear, normal breath sounds, no respiratory distress, no retraction, no wheezing Cardiovascular #1: regular rate, rhythm, no edema Gastrointestinal: normal inspection, normal bowel sounds, non tender, soft, no guarding, no hernia Genitourinary: no CVA tenderness Musculoskeletal: normal inspection, back normal, normal range of motion Neurologic: alert, responsive, speech normal, normal inspection Psychiatric: normal inspection, judgement/insight normal, mood/affect normal Skin: no rash Medical Decision Making Diagnostic Impression: Primary Impression: Sinusitis Additional Impression: Arthritis ER Course Patient presented emergency department today complaining of facial pain and hand pain. Differential considerations include sinusitis, arthritis, viral syndrome just name few. Given the prolonged symptoms patient sinus complaints I felt that it was reasonable start patient on antibiotics as patient has had symptoms for almost 2 weeks. In addition patient has had joint pains. However they resemble more of an arthritis like or overuse situation. There is no evidence of any joint swelling or infection. Patient has good range of motion. No evidence any muscle pain or swelling. Will recommend Motrin to be taken as needed. Will start patient on antibiotics. Patient is advised to follow up with primary doctor in 2-3 days and return the emergency room for any worsening symptoms and as needed. Last Vital Signs Date Time Temp Pulse Resp B/P (MAP) Pulse Ox O2 Delivery O2 Flow Rate FiO2 10/07/20 12:39 130/76 (94) Status: improved Disposition: HOME, SELF-CARE Condition: Stable Scripts Amoxicillin* (AMOXIL*) 500 Mg Capsule 1000 MG ORAL THREE TIMES A DAY for 7 Days, #42 CAP Prov: Armond Bro MD 10/07/20 Ibuprofen* (MOTRIN*) 600 Mg Tablet 600 MG ORAL Q6H PRN for FOR PAIN, #20 TAB 0 Refills Prov: Armond Bro MD 10/07/20 Fexofenadine Hcl (KODI ALLERGY) 180 Mg Tablet 180 MG PO DAILY for 14 Days, TAB Prov: Armond Bro MD 10/07/20 Referrals: Tejinder LEONARDO,REFERRING (PCP) Patient Instructions: Arthritis, Sinusitis, Adult Armond Bro MD Oct 07, 2020 13:03
[2020-10-07 13:05] VITALS: BP 130/76
--- NOTE | 2020-10-07 13:06 | NUR ---
pt cleared for discharge by md. pt verbalizes to followup with MD and take prescriptions as directed.
--- NOTE | 2020-10-07 13:08 | NUR ---
ED Nurse Note: Pt cleared by health care Provider for discharge. DC instructions/prescription was given and explained to pt and verbalized understanding of teachings. All medical deviecs such as ID band removed. Pt is AAO x4, ambulatory and left with all personal belongings.
== END 2020-10-07 13:03 | disposition home or self-care (01) ==
LOC: EMR 12:58
DX: J32.9 Chronic sinusitis, unspecified (principal); M19.90 Unspecified osteoarthritis, unspecified site; Z88.0 Allergy status to penicillin; K21.9 Gastro-esophageal reflux disease without esophagitis
CPT/HCPCS: 99282

== ENCOUNTER 2020-10-17 19:07 | Emergency (ER) | payer MEDICAID ==
[~2020-10-17] VITALS: Ht 157.5 cm; Wt 61.2 kg
[~2020-10-17 19:07] MED LIST changes: +ALLEGRA ALLERG180 M1 PO; +IBUPROFEN600 M1 ORAL
--- NOTE | 2020-10-17 19:29 | NUR ---
Pt reports R knee pain that began x1 week ago. Pt reports no previous medical Hx. Pt states she last took ibuprofen x1 day ago. Pt states she was exercising x1 week ago. Pain gets worse at night per patient.
--- NOTE | 2020-10-17 19:45 | Emergency Room Report ---
History of Present Illness General Chief Complaint: Lower Extremity Injury Source: Patient Present Illness HPI Patient presents with 1 week of increased right knee pain. It is worse at night. She has been increasing her exercise for the last 2weeks. She fell backwards also during that time. She did not injure the knee when she fell backwards but it has been hurting. She has been taking prescription strength Motrin, 600mg intermittently. She rates the pain 8/10. She denies any numbness. She states the pain is worse at night. She also complains about some difficulty making a fist on both of her hands. She has been doing a lot of weight lifting with her upper body recently. Patient denies any exposure to Covid positive contacts. Last menstruation was 20 years ago. There is a family history of gout however its distant. Her grandmother was also taking diuretics when she had the gout. Allergies: Coded Allergies: SULFA (SULFONAMIDE ANTIBIOTICS) (Unverified Allergy, Intermediate, 10/23/18) COVID-19 Screening Contact w/high risk pt: No Recent Travel to affected area: No Experienced COVID-19 symptoms?: No COVID-19 Testing performed SERVICE DOG TRAINER: No Patient History Past Medical History: see triage record Social History: Denies: smoking Social History Narrative Patient drove herself here Now: No Reviewed Nursing Documentation: PMH: Agreed; PSxH: Agreed Nursing Documentation-PMH Hx Gastrointestinal Problems: Yes - GERD Review of Systems Constitutional: Denies: fever Respiratory: Denies: shortness of breath Cardiovascular: Denies: chest pain Gastrointestinal: Denies: abdominal pain, constipation, diarrhea Genitourinary: Denies: dysuria Musculoskeletal: Reports: see HPI Skin: Denies: rash Neurological: Denies: numbness Physical Exam Vital Signs Date Time Temp Pulse Resp B/P (MAP) Pulse Ox O2 Delivery O2 Flow Rate FiO2 10/17/20 19:23 98.2 84 16 148/78 (101) 93 Room Air Lower than expected pulse ox felt to be machine error. Sp02 EP Interpretation: reviewed, other - see above - my interpretation General Appearance: well appearing, no apparent distress, GCS 15 Head: normocephalic Eyes: bilateral eye normal inspection, bilateral eye PERRL, bilateral eye EOMI ENT: other - Mask Neck: normal inspection, full range of motion Cardiovascular #1: regular rate, rhythm Cardiovascular #2: 2+ dorsalis pedis (R) - Good capillary fill Gastrointestinal: normal inspection Musculoskeletal: gait/station normal, no calf tenderness, tenderness - Right lateral knee without effusion. Ligaments stable. No drawer sign. Apley's compression with lateral meniscus tenderness Neurologic: alert Psychiatric: mood/affect normal Skin: normal color, no rash, warm/dry Medical Decision Making Diagnostic Impression: Primary Impression: Right knee sprain Qualified Codes: S83.421A - Sprain of lateral collateral ligament of right knee, initial encounter ER Course Patient presents with 1 week of intermittent right knee pain after increasing exercise and also falling backwards. Bilateral knee rules x-rays are not indicated however the patient is having constant pain. Consideration for possible gout or pseudogout along with arthritis. X-rays will be obtained to ascertain the degree of osteoarthritis. The lateral collateral ligament is tender and suggesting a meniscal injury. The patient is requesting a shot and Toradol would be administered. Although there is a family history of gout physical exam is against this diagnosis. Xray normal. Cole applied by RN and readjusted by me. Tension excellent and distal neurovasc normal. Improved with cole. Discussed findings and treatment plan with patient. Patient stable for outpatient observation and treatment. Other X-Ray Diagnostic Results Other X-Ray Diagnostic Results : X-Ray ordered: R knee # of Views/Limited Vs Complete: 3 View Indication: Pain EP Interpretation: Yes Interpretation: no dislocation, no soft tissue swelling, no fractures Impression: No acute disease Electronically Signed by: Electronically signed by Sukhwinder Olguin MD Last Vital Signs Date Time Temp Pulse Resp B/P (MAP) Pulse Ox O2 Delivery O2 Flow Rate FiO2 10/17/20 20:07 98.2 79 16 142/72 97 Room Air Status: improved Disposition: HOME, SELF-CARE Condition: Improved Scripts Hydrocodone Bit/Acetaminophen (HYDROCODON-ACETAMINOPHEN 5-300) 1 Each Tablet 1 EACH PO Q6HR, #10 TAB Prov: Sukhwinder Olguin MD 10/17/20 Ibuprofen* (MOTRIN*) 600 Mg Tablet 600 MG ORAL Q6H PRN for FOR PAIN, #20 TAB 0 Refills Prov: Sukhwinder Olguin MD 10/17/20 Referrals: Tejinder LEONARDO,REFERRING (PCP) Sukhwinder Olguin MD Oct 17, 2020 19:45
[2020-10-17] MEDS: Ketorolac 30mg Inj IM ONE (19:47)
--- NOTE | 2020-10-17 19:55 | NUR ---
Pt educated about and fitted with DEDRA wrap bandage on R knee and verbalizes understanding of use of DEDRA bandage support. ED MD at bedside sharing results of Xray with patient.
--- NOTE | 2020-10-17 20:01 | Diagnostic Imaging Report ---
EXAM: XR Right Knee, 3 Views CLINICAL HISTORY: PAIN TECHNIQUE: Three views of the right knee. COMPARISON: No relevant prior studies available. FINDINGS: Negative for evidence of fracture or dislocation.
[2020-10-17] MEDS ORDERED: IBUPROFEN600 M1 ORAL (20:04)
[2020-10-17] MEDS ORDERED: HYDROCODON-ACE1 EA18 PO (20:04)
[2020-10-17 20:07] VITALS: BP 142/72
--- NOTE | 2020-10-17 20:08 | NUR ---
ER DISCHARGE NOTE: Patient is cleared to be discharged per ERMD, pt is aox4, on room air, with stable vital signs. pt was given dc and prescription instructions, pt was able to verbalize understanding, pt id band removed without complications. pt is able to ambulate with steady gait. pt took all belongings.
== END 2020-10-17 20:09 | disposition home or self-care (01) ==
LOC: EMR 19:35
DX: S83.421A Sprain of lateral collateral ligament of right knee, initial encounter (principal); W19.XXXA Unspecified fall, initial encounter; Y92.9 Unspecified place or not applicable; Z88.2 Allergy status to sulfonamides; K21.9 Gastro-esophageal reflux disease without esophagitis
CPT/HCPCS: 73562; 96372; J1885; Z7502; 99283